=== PATIENT | female | born 1960 | race Caucasian/White ===

== ENCOUNTER 2016-07-25 09:48 | Emergency (ER) | payer OTHER, MEDICAID ==
--- NOTE | 2016-07-25 10:18 | EDPHY ---
H & P Time Seen by Provider: 07/25/16 10:18 HPI/ROS: CHIEF COMPLAINT: I need surgery HISTORY OF PRESENT ILLNESS: Patient is had abdominal pain for last year and had a CT scan yesterday at outpatient imaging and tells me she has a "tumor" in her abdomen and needs to schedule surgery. No vomiting or diarrhea, no fever or chills. REVIEW OF SYSTEMS: Eye: no change in vision ENT: no sore throat Cardiac: no chest pain or syncope Pulmonary: no cough or SOB Abdomen: HPI Musculoskeletal: Multiple areas of chronic pain from fibromyalgia unchanged Skin: no rash Neuro: no headache Constitutional: no fever : no urinary symptoms A comprehensive 10 point review of systems is otherwise negative aside from elements mentioned in the history of present illness. PAST MEDICAL HISTORY: Includes bipolar and fibromyalgia, sciatica, hysterectomy. Social history: Tobacco smoker General Appearance: Alert and conversant, cooperative. Eyes: No scleral icterus. ENT, Mouth: Normal mucous membranes. Respiratory: Normal respiratory effort, breath sounds equal, lungs are clear to auscultation. Cardiovascular: Regular rate and rhythm. Gastrointestinal: Abdomen is soft and non tender. Obese, no rebound or guarding. Neurological: Alert and oriented x3. Normally conversant. Face symmetric, normal movement and sensation in all extremities. Skin: Chronic venous stasis changes both legs unchanged. Musculoskeletal: Bilateral pedal edema unchanged Psychiatric: Not agitated. Emergency Department course/MDM: CT loaded into PACs, radiology consult. CT finding official read reviewed by me at 11:30 a.m.. This is by Dr. Nagi Rodrigues. She has sigmoid diverticulosis without diverticulitis and a supraumbilical left paramedian hernia containing fat 10 cm superior from the umbilicus which is 7.3 x 2.9 cm. Results discussed with the patient at this time. Does not have evidence clinically this is surgical emergency, outpatient surgical referral. Patient states she is understanding and in agreement with the plan. Smoking Status: Current every day smoker Constitutional: Initial Vital Signs Temperature (C) 36.7 C 07/25/16 09:53 Heart Rate 94 07/25/16 09:53 Respiratory Rate 18 07/25/16 09:53 Blood Pressure 108/51 L 07/25/16 09:53 O2 Sat (%) 94 07/25/16 09:53 O2 Delivery Mode Room Air Allergies/Adverse Reactions: aspirin [Aspirin] Allergy (Mild, Verified 01/29/13 11:21) Vomiting haloperidol [From Haldol] Allergy (Mild, Verified 01/29/13 11:21) INSOMNIA haloperidol lactate [From Haldol] Allergy (Mild, Verified 01/29/13 11:21) INSOMNIA oxycodone Allergy (Verified 05/04/15 19:36) OXYCODON Allergy (Uncoded 05/04/15 19:36) Home Medications: Medication Instructions Recorded [place] [facility] ER [Lithobid 300 600 mg PO BID 12/28/12 mg (RX)] [place] [facility] [[place] 2 tab PO BID #20 tab 12/28/12 Carbonate Tab 300 mg (RX)] AMITRIPTYLINE HCL 05/04/15 Lasix 07/25/16 Departure - Departure Disposition: Home, Routine, Self-Care Clinical Impression: Ventral hernia Qualifiers: Obstruction and gangrene presence: without obstruction or gangrene Qualified Code(s): K43.9 - Ventral hernia without obstruction or gangrene Condition: Good Instructions: Ventral Hernia (ED) Additional Instructions: You have on CT scan a small hernia above the belly button in the middle of your abdomen. Please follow-up with referral surgeon. Referrals: Wolfgang Broussard MD [Medical Doctor] - As per Instructions
[2016-07-25 11:52] VITALS: BP 124/76; PULSE 72; RESP 17; TEMP 98.2; O2SAT 96
== END 2016-07-25 11:51 | disposition home or self-care (01) ==
DX: K43.9 Ventral hernia without obstruction or gangrene (principal); F17.200 Nicotine dependence, unspecified, uncomplicated; Z90.710 Acquired absence of both cervix and uterus

== ENCOUNTER 2017-06-13 13:34 | Inpatient (IN) | payer OTHER, MEDICAID ==
[2017-06-13] MEDS ORDERED: NS 250 ML IV ONE (13:43)
[2017-06-13] MEDS ORDERED: IPRATROPIUM/ALBUTEROL 3 ML DEYVIAL IH ONE (13:48)
[2017-06-13] MEDS ORDERED: IPRATROPIUM/ALBUTEROL 3 ML DEYVIAL ONE (13:49)
--- NOTE | 2017-06-13 13:56 | EDPHY ---
H & P Time Seen by Provider: 06/13/17 13:43 HPI/ROS: HPI Cough, shortness of breath. 56-year-old female by ambulance. She was at her primary care physicians at the [facility]. She is homeless and has been staying at the homeless long-term. She reports that a lot of people have flu at the homeless long-term. She reports she developed a bad cough 2-3 days ago. She describes this as nonproductive. She reports that today with the cough she was more short of breath. She has also had fever and body aches. Denies chest pain. She has no history of COPD or asthma. Denies history of congestive heart failure. She is a smoker. She went to the [facility] to see care. Her pulse oximetry was 71% at that time. The physicians at the [facility] called 911 and she was sent emergently to our emergency department. ROS: Constitutional: As above. No weakness. Eyes: No discharge. No changes in vision. ENT: No sore throat. No nasal congestion or rhinorrhea. Respiratory: As above. Cardiac: No chest pain, no palpitations. Gastrointestinal: No abdominal pain, no vomiting, no diarrhea. Genitourinary: No hematuria. No dysuria or increased frequency with urination. Musculoskeletal: No back pain. No neck pain. As above. Skin: No rashes. Neurological: No headache. No focal weakness or altered sensation. Past medical history: Psychiatric. Bipolar, fibromyalgia, sciatica, hysterectomy, chronic back pain, hand fracture. Homeless. Social history: Heavy smoker. Denies IV drugs or street drugs. Denies alcohol. Homeless. Physical Exam: General Appearance: Alert, no distress. She is on face mask oxygen currently at 8 L. This patient is responding to questions appropriately and in short sentences. This patient appears generally well-hydrated and well-nourished. Eyes: Pupils equal and round no pallor or injection. No lid edema, erythema or injection. Respiratory: There are no retractions, diffuse wheezing bilateral lung olmedo with crackles at the bases. Tachypnea at 22-25. Cardiovascular: Regular rate and rhythm. No murmur. Gastrointestinal: Abdomen is soft and nontender, no masses, bowel sounds normal. No focal tenderness at McBurney's point. No Ferguson sign. Neurological: Motor sensory function is grossly intact. Cranial nerves are normal. Gait is normal. Skin: Warm and dry, no rashes. Musculoskeletal: Neck is supple and nontender. Extremities are symmetrical. All joints range without pain or impingement. Psychiatric: No agitation. No depression. Database: EKG: EKG time is 2:20 p.m.; EKG shows a narrow complex normal sinus rhythm with a ventricular rate of 95. Right bundle branch block and left posterior fascicular block noted. The NC, QT intervals are within normal limits. Q-waves noted in the inferior leads. There are no ST-T wave changes indicative of ischemic or injury pattern. No evidence of right heart strain. Interpreted by me. Imaging: Chest x-ray AP portable; the cardiac mediastinal silhouette is unremarkable. No evidence of infiltrate or pneumothorax. No acute cardiopulmonary disease process noted. Interpreted by me. Procedures: Emergency department course: IV was placed. Respiratory therapy available at the bedside with CPAP. Patient was placed on face mask oxygen at 8 L. She appears to be doing well on this currently. Pulse oximetry 95%. Patient started initially on albuterol/ Atrovent nebs 6 mL. 2:45 p.m., patient placed on CPAP initially at 8. This was done secondary to complaint of shortness of breath. She has been at 95% on her pulse oximetry with 8 L of facemask oxygen. 4:00 p.m., patient re-evaluated. She is currently on CPAP. No respiratory distress. Tolerating this therapy well. Pulse oximetry 97%. pearl stringer shows a narrow complex sinus rhythm rate of 88. Blood pressure 136/72. Patient given Tamiflu 75 mg orally. She is flu B positive. Plan for admission discussed. Hospitalist paged. Her troponin is also noted to be slightly elevated. 4:20 p.m., spoke with on-call hospitalist Dr. Vargas. Case discussed in detail with him. Discussed elevated troponin as well as patient's current condition on CPAP but stable. He accepts the patient for admission to the hospitalist service. He is requesting admission to [facility] with telemetry. The patient' s remaining emergency department course under my care has been uneventful. She was admitted in stable condition. Differential Diagnosis: The differential diagnosis on this patient includes but is not limited to bronchitis, pneumonia, congestive heart failure, influenza, reactive airway disease, COPD. This represents a partial list of diagnoses considered. These considerations are based on history, physical exam, past history, reassessment and diagnostic testing. Smoking Status: Current every day smoker Constitutional: Initial Vital Signs O2 Sat (%) 95 06/13/17 13:43 O2 Delivery Mode Bi-Pap O2 (L/minute) 5 Allergies/Adverse Reactions: aspirin [Aspirin] Allergy (Mild, Verified 01/29/13 11:21) Vomiting haloperidol [From Haldol] Allergy (Mild, Verified 01/29/13 11:21) INSOMNIA haloperidol lactate [From Haldol] Allergy (Mild, Verified 01/29/13 11:21) INSOMNIA oxycodone Allergy (Verified 05/04/15 19:36) Home Medications: Medication Instructions Recorded NK [No Known Home Meds] 06/13/17 Medical Decision Making - Data Points Laboratory Results: Laboratory Results 06/13/17 14:11 06/13/17 14:11 Microbiology Results: MICROBIOLOGY 06/13/17 13:50 Nasal, Sinus - Swab Respiratory Panel (PCR) - Final Influenza Virus Type B Medications Given: Acetaminophen (Tylenol) 650 mg PO Q4HRS PRN PRN Reason: Pain, Mild/Fever, Can Take PO Stop: 12/10/17 19:28 Last Admin: 06/13/17 23:46 Dose: 650 mg Albuterol/Ipratropium (Duoneb) 3 ml IH QID [facility] Stop: 12/10/17 20:59 Last Admin: 06/14/17 10:52 Dose: 3 ml Enoxaparin Sodium (Lovenox) 40 mg SC DAILY [facility] Stop: 12/11/17 08:59 Last Admin: 06/14/17 08:26 Dose: 40 mg Famotidine (Pepcid) 20 mg PO BID [facility] Stop: 12/10/17 20:59 Last Admin: 06/14/17 08:25 Dose: 20 mg Multivitamins (Tab-A-Jeanna) 1 each PO DAILY [facility] Stop: 12/11/17 08:59 Last Admin: 06/14/17 08:26 Dose: 1 each Nicotine (Nicoderm Cq) 21 mg TD DAILY [facility] Stop: 12/11/17 08:59 Last Admin: 06/14/17 08:44 Dose: Not Given Oseltamivir Phosphate (Tamiflu) 75 mg PO BIDMEAL [facility] Stop: 06/18/17 08:01 Last Admin: 06/14/17 08:25 Dose: 75 mg Prednisone (Prednisone) 40 mg PO BIDMEAL [place]YL[place] Stop: 12/10/17 19:32 Last Admin: 06/14/17 08:25 Dose: 40 mg Discontinued Medications Acetaminophen (Tylenol) 1,000 mg PO EDNOW ONE Stop: 06/13/17 15:40 Last Admin: 06/13/17 16:13 Dose: 1,000 mg Albuterol/Ipratropium (Duoneb) 6 ml IH EDNOW ONE Stop: 06/13/17 13:49 Last Admin: 06/13/17 14:30 Dose: 6 ml Sodium Chloride (Ns) 250 mls @ 1,000 mls/hr IV EDNOW ONE PRN Reason: Protocol Stop: 06/13/17 13:57 Last Admin: 06/13/17 14:30 Dose: 250 mls Oseltamivir Phosphate (Tamiflu) 75 mg PO EDNOW ONE Stop: 06/13/17 16:03 Last Admin: 06/13/17 16:14 Dose: 75 mg Departure - Departure Disposition: [facility] Clinical Impression: Bronchitis, Hypoxia, Influenza B, Elevated troponin Condition: Fair
--- NOTE | 2017-06-13 14:23 | CPEKG ---
Heart Rate: 95 RR Interval: 632 P-R Interval: 128 QRSD Interval: 124 QT Interval: 384 QTC Interval: 483 P [place]: 63 QRS [place]: 84 T Wave [place]: 19 EKG Severity - ABNORMAL ECG - EKG Impression: SINUS RHYTHM EKG Impression: RBBB AND LPFB EKG Impression: INFERIOR INFARCT, AGE INDETERMINATE Electronically Signed By: Garcia Hancock 13-Jun-2017 21:26:59
[2017-06-13 14:30] LABS: PLATELET COUNT 138 10^3/uL (150-400)
[2017-06-13] MEDS ORDERED: ACETAMINOPHEN 500 MG TAB PO ONE (15:39)
[2017-06-13] MEDS ORDERED: OSELTAMIVIR PHOSPHATE 75 MG CAP PO ONE (16:02)
--- NOTE | 2017-06-13 19:23 | PDGENHP ---
History and Physical History and Physical: CC: Cough shortness of breath fevers and aches HISTORY: This patient is homeless and staying in a local homeless correction comes in with 3-4 days of headaches, dry cough, nausea, diffuse myalgias and arthralgias, diarrhea, and now 2 days of rapidly progressive shortness of breath. She went to [facility] where she has 71% oxygen saturation and was quite dyspneic. She was sent to the ER. Here in the ER she has been using CPAP now to keep her oxygen saturation up and this is helping her symptom of dyspnea significantly. She has also had some bronchodilators. She has tested positive for influenza B. She does have a decades long history of smoking in past records has been diagnosed with COPD but is not using any bronchodilators or any other prescribed medicines at this time due to her homelessness. She does not have any chest pain and does not have any history of heart disease or thromboembolic disease. ROS: A comprehensive 10 system review revealed no other significant findings PAST MEDICAL HISTORY: COPD with ongoing smoking use Breast cancer with mastectomy Depression and possible bipolar disease Chronic reflux disease Hysterectomy Past history of alcohol and marijuana Osteoarthritis Fibromyalgia Chronic back pain FAMILY MEDICAL HISTORY: Unknown to patient SOCIAL HISTORY: Home less, still using tobacco but not drinking some pot use the Staying in homeless correction [facility] not on any regular basis MEDICATIONS: The patients list has been reconciled by our clinical pharmacist in the EMR. I have reviewed the list and ordered appropriate medicines. PHYSICAL EXAMINATION: Vital Signs: Temperature 38.4degrees, mildly hypertensive but good pulses calmer some increased respiratory rate Elastic Cutter: Sinus rhythm Examination: General: alert, oriented, good mentation Skin: warm, dry, good color, no rash HEENT: normal Neck: no mass or jvd Resps: Currently on CPAP, remains mildly tachypneic right now Lungs: Very diminished but clear breath sounds no wheeze or rales Heart: regular, no murmur Abdomen: soft, nondistended, nontender, +BS, no mass Upper Extremities: normal Lower Extremities: no edema, warm No Bleeding or bruising Neurologic: normal speech/language, normal art supervisor, no focal weakness IV site: looks normal LABORATORY DATA: White blood cell count is elevated CBC otherwise unremarkable indeterminate troponin 0.03 Potassium is elevated at 5.9 with normal renal function I have ordered a procalcitonin and this is currently pending RADIOLOGY STUDIES: I reviewed her chest x-ray today which shows evidence of COPD but no evidence of pneumonia or infiltrates and no pulmonary edema 12 LEAD EKG: I reviewed her ER tracing, borderline sinus tachycardia at 95, enlarged P waves , right bundle branch block and left anterior fascicular block, nothing ischemic ASSESSMENT: -acute hypoxemic respiratory failure with a history of COPD -acute influenza B infection -hyperkalemia, differential diagnosis here includes hemolysis of the sample -obesity and suspect she probably has some obesity hypoventilation syndrome as well as the above -homelessness High risk patient with ongoing urgent use of CPAP for her respiratory failure at this time PLANS: -admission to SDU -continue CPAP for now -bronchodilators and steroids for COPD -will begin Tamiflu -will check on the procalcitonin but at this time there is no direct evidence of a bacterial infection -pulmonology consultation in the morning I have reviewed the patient's case in detail with Dr. Hancock of the ER I have reviewed the patient's past medical records as part of this assessment, including previous hospital admission records and chest x-ray images
[2017-06-13] MEDS ORDERED: ONDANSETRON DISINTEGRATING 4 MG TAB PO PRN (19:29)
[2017-06-13] MEDS ORDERED: ZOLPIDEM TARTRATE 5 MG TAB PO PRN (19:29)
[2017-06-13] MEDS ORDERED: ONDANSETRON 4 MG/2 ML VIAL IVP PRN (19:29)
--- NOTE | 2017-06-13 19:35 | PDGENHP ---
History and Physical History and Physical: CC: Cough shortness of breath fevers and aches HISTORY: This patient is homeless and staying in a local homeless senior care comes in with 3-4 days of headaches, dry cough, nausea, diffuse myalgias and arthralgias, diarrhea, and now 2 days of rapidly progressive shortness of breath. She went to [facility] where she has 71% oxygen saturation and was quite dyspneic. She was sent to the ER. Here in the ER she has been using CPAP now to keep her oxygen saturation up and this is helping her symptom of dyspnea significantly. She has also had some bronchodilators. She has tested positive for influenza B. She does have a decades long history of smoking in past records has been diagnosed with COPD but is not using any bronchodilators or any other prescribed medicines at this time due to her homelessness. She does not have any chest pain and does not have any history of heart disease or thromboembolic disease. ROS: A comprehensive 10 system review revealed no other significant findings PAST MEDICAL HISTORY: COPD with ongoing smoking use Breast cancer with mastectomy Depression and possible bipolar disease Chronic reflux disease Hysterectomy Past history of alcohol and marijuana Osteoarthritis Fibromyalgia Chronic back pain FAMILY MEDICAL HISTORY: Unknown to patient SOCIAL HISTORY: Home less, still using tobacco but not drinking some pot use the Staying in homeless senior care [facility] not on any regular basis MEDICATIONS: The patients list has been reconciled by our clinical pharmacist in the EMR. I have reviewed the list and ordered appropriate medicines. PHYSICAL EXAMINATION: Vital Signs: Temperature 38.4degrees, mildly hypertensive but good pulses calmer some increased respiratory rate Crown Perforator Operator: Sinus rhythm Examination: General: alert, oriented, good mentation Skin: warm, dry, good color, no rash HEENT: normal Neck: no mass or jvd Resps: Currently on CPAP, remains mildly tachypneic right now Lungs: Very diminished but clear breath sounds no wheeze or rales Heart: regular, no murmur Abdomen: soft, nondistended, nontender, +BS, no mass Upper Extremities: normal Lower Extremities: no edema, warm No Bleeding or bruising Neurologic: normal speech/language, normal school bus operator, no focal weakness IV site: looks normal LABORATORY DATA: White blood cell count is elevated CBC otherwise unremarkable indeterminate troponin 0.03 Potassium is elevated at 5.9 with normal renal function I have ordered a procalcitonin and this is currently pending RADIOLOGY STUDIES: I reviewed her chest x-ray today which shows evidence of COPD but no evidence of pneumonia or infiltrates and no pulmonary edema 12 LEAD EKG: I reviewed her ER tracing, borderline sinus tachycardia at 95, enlarged P waves , right bundle branch block and left anterior fascicular block, nothing ischemic ASSESSMENT: -acute hypoxemic respiratory failure with a history of COPD -acute influenza B infection -hyperkalemia, differential diagnosis here includes hemolysis of the sample -obesity and suspect she probably has some obesity hypoventilation syndrome as well as the above -homelessness High risk patient with ongoing urgent use of CPAP for her respiratory failure at this time PLANS: -admission to SDU -continue CPAP for now -bronchodilators and steroids for COPD -will begin Tamiflu -will check on the procalcitonin but at this time there is no direct evidence of a bacterial infection -pulmonology consultation in the morning -will recheck potassium now and treat as indicated -DVT and stress ulcer prophylaxis both ordered I have reviewed the patient's case in detail with Dr. Hancock of the ER I have reviewed the patient's past medical records as part of this assessment, including previous hospital admission records and chest x-ray images
[2017-06-13 19:37] LABS: INR 1.14 (0.83-1.16); PROTIME(PATIENT) 14.8 SEC (12.0-15.0)
--- NOTE | 2017-06-13 19:57 | PDMN ---
Medical Necessity Medical necessity: C/M review: est. > 2 MN LOS for eval and TX of acute hypoxemic respiratory failure, acute influenza B infection, requiring ongoing Duonebs, oral Prednisone, oral Tamiflu, pulse oximetry, supplemental O2, CPAP in SDU, comorbid history of COPD, obesity, suspect probable obesity hypoventilation syndrome, homelessness, ongoing tobacco smoking use, breast cancer, possible bipolar disease, depression, chronic reflux disease, fibromyalgia, chronic back pain per H/P.
[2017-06-13] MEDS: predniSONE 20 MG TAB PO SCH (20:17)
[2017-06-13] MEDS: ACETAMINOPHEN 325 MG TAB PO PRN (23:46)
[2017-06-13] MEDS: FAMOTIDINE 20 MG TAB PO SCH (23:47)
[2017-06-13] MEDS: IPRATROPIUM/ALBUTEROL 3 ML DEYVIAL IH SCH (23:51)
[2017-06-14] MEDS: IPRATROPIUM/ALBUTEROL 3 ML DEYVIAL IH SCH ×4 (05:21→21:27)
[2017-06-14 06:19] LABS: PLATELET COUNT 150 10^3/uL (150-400)
[2017-06-14] MEDS: predniSONE 20 MG TAB PO SCH ×2 (08:25→17:20)
[2017-06-14] MEDS: FAMOTIDINE 20 MG TAB PO SCH ×2 (08:25→20:14)
[2017-06-14] MEDS: OSELTAMIVIR PHOSPHATE 75 MG CAP PO SCH ×2 (08:25→17:20)
[2017-06-14] MEDS: MULTIVITAMINS 1 EACH TAB PO SCH (08:26)
[2017-06-14] MEDS: ENOXAPARIN 40 MG/0.4 ML SYR SC SCH (08:26)
[2017-06-14] MEDS: NICOTINE 21 MG/24 HR PATCH TD SCH (08:44)
--- NOTE | 2017-06-14 14:58 | ASMTCMCOM ---
CM Note CM Note Notes: Pt has been admitted with the flu and hypoxia. On CPAP and 5L O2. Hx COPD. She is homeless and stays at the alf. Has been seen at [facility] but does not go regularly. CM will follow for any d /c needs. Date Signed: 06/14/2017 02:58 PM Electronically Signed By:JEN Viera
[2017-06-14] MEDS: AZITHROMYCIN IV 500 MG in D5W 250 ML IV SCH (16:12)
--- NOTE | 2017-06-14 17:32 | HOSPPROG ---
Hospitalist Progress Note Assessment/Plan: #. Acute Hypoxic Resp Failure - secondary to possibly COPD with influeza. Continue scheduled nebulizers and prednisone. Lungs still quite course on exam. I will add azithromycin in case of developing secondary bacterial pneumonia but procalcitonin relatively low at this time. #. COPD - suspected underlying COPD as chronic smoker. #. Influenza - Tamiflu started. Droplet precautions. #. Hyperkalemia - resolved. Now normal. #. Depression - history of but does not appear to be treated currently. #. Hx Breast CA - Hx mastectomy. #. Tobacco Use - nicotine replacement ordered. #. Bowel/Bladder - bowel regimen if constipation develops. #. DVT Prophylaxis - lovenox in place. #. Dispo - we will need social works assistance. She apparently lost her apartment. Subjective: Patient states she is still feeling quite short of breath. She confirms she does not use oxygen at home. She was tearful during exam as she states she lost her place of living. Objective: Vital Signs Temp Pulse Resp BP Pulse Ox 37.1 C 82 30 H 126/95 H 91 L 06/14/17 15:44 06/14/17 15:44 06/14/17 15:44 06/14/17 15:44 06/14/17 15:44 Laboratory Results 06/14/17 05:08 06/14/17 05:08 06/13/17 06/14/17 06/15/17 05:59 05:59 05:59 Intake Total 850 Output Total 700 Balance 850 -700 PT 14.8 SEC (12.0-15.0) 06/13/17 19:14 INR 1.14 (0.83-1.16) 06/13/17 19:14 - Physical Exam Constitutional: other (tearful, anxious) Cardiovascular: regular rate and rhythym, no murmur, rub, or gallop Respiratory: expiratory wheeze, inspiratory crackles Gastrointestinal: normoactive bowel sounds, soft, non-tender abdomen, No tenderness Genitourinary: No roberto in urethra Neurologic: AAOx3 Psychiatric: interacting appropriately, anxious ICD10 Worksheet Patient Problems: Problems Problem Status Onset Manic bipolar I disorder Active Bronchitis Acute Hypoxia Acute Influenza B Acute Elevated troponin Acute
[2017-06-14] MEDS: ACETAMINOPHEN 325 MG TAB PO PRN (20:14)
[2017-06-15] MEDS: IPRATROPIUM/ALBUTEROL 3 ML DEYVIAL IH SCH ×4 (05:21→20:00)
[2017-06-15 05:44] LABS: PLATELET COUNT 185 10^3/uL (150-400)
[2017-06-15] MEDS: OSELTAMIVIR PHOSPHATE 75 MG CAP PO SCH ×2 (08:07→17:37)
[2017-06-15] MEDS: predniSONE 20 MG TAB PO SCH (08:07)
[2017-06-15] MEDS: FAMOTIDINE 20 MG TAB PO SCH ×2 (08:07→20:48)
[2017-06-15] MEDS: ENOXAPARIN 40 MG/0.4 ML SYR SC SCH (08:07)
[2017-06-15] MEDS: AZITHROMYCIN IV 500 MG in D5W 250 ML IV SCH (08:07)
[2017-06-15] MEDS: MULTIVITAMINS 1 EACH TAB PO SCH (08:07)
[2017-06-15] MEDS: NICOTINE 21 MG/24 HR PATCH TD SCH (08:09)
[2017-06-15] MEDS ORDERED: AZITHROMYCIN IV 500 MG in D5W 250 ML IV SCH (09:00)
[2017-06-15] MEDS: ACETAMINOPHEN 325 MG TAB PO PRN ×2 (15:44→20:47)
--- NOTE | 2017-06-15 16:09 | HOSPPROG ---
Hospitalist Progress Note Assessment/Plan: #. Acute Hypoxic Resp Failure - secondary to possibly COPD with influeza. Continue scheduled nebulizers and prednisone. Lungs still quite course on exam. I will add azithromycin in case of developing secondary bacterial pneumonia but procalcitonin relatively low at this time. #. COPD - suspected underlying COPD as chronic smoker. #. Influenza - Tamiflu started. Droplet precautions. #. Depression - history of but does not appear to be treated currently. #. Hx Breast CA - Hx mastectomy. #. Tobacco Use - nicotine replacement ordered. #. Insomnia - exacerbated by prednisone. Try amitriptyline at night which she has used in the past. #. Bowel/Bladder - bowel regimen if constipation develops. #. DVT Prophylaxis - lovenox in place. #. Dispo - we will need social works assistance. She apparently lost her apartment. Subjective: F/U acute hypoxia. She states difficulty sleeping last night due to prednisone. We discussed amitriptyline which she has used previously. She feels her breathing is improving. Objective: Vital Signs Temp Pulse Resp BP Pulse Ox 37.3 C 87 23 H 136/100 H 94 06/15/17 15:40 06/15/17 15:40 06/15/17 15:40 06/15/17 15:40 06/15/17 15:40 Laboratory Results 06/15/17 05:27 06/15/17 05:27 06/14/17 06/15/17 06/16/17 05:59 05:59 05:59 Intake Total 850 1500 800 Output Total 700 Balance 850 800 800 PT 14.8 SEC (12.0-15.0) 06/13/17 19:14 INR 1.14 (0.83-1.16) 06/13/17 19:14 - Physical Exam Constitutional: no apparent distress Cardiovascular: regular rate and rhythym, no murmur, rub, or gallop Respiratory: no respiratory distress, expiratory wheeze Gastrointestinal: normoactive bowel sounds, soft, non-tender abdomen Genitourinary: No roberto in urethra Skin: warm, normal color Psychiatric: not anxious ICD10 Worksheet Patient Problems: Problems Problem Status Onset Bronchitis Acute Elevated troponin Acute Hypoxia Acute Influenza B Acute Manic bipolar I disorder Active
[2017-06-15] MEDS: AMITRIPTYLINE HCL 10 MG TAB PO PRN (20:48)
[2017-06-16] MEDS: ACETAMINOPHEN 325 MG TAB PO PRN ×4 (05:13→21:37)
[2017-06-16] MEDS: IPRATROPIUM/ALBUTEROL 3 ML DEYVIAL IH SCH ×4 (05:34→21:36)
[2017-06-16 05:59] LABS: PLATELET COUNT 228 10^3/uL (150-400)
[2017-06-16] MEDS: ENOXAPARIN 40 MG/0.4 ML SYR SC SCH (08:21)
[2017-06-16] MEDS: MULTIVITAMINS 1 EACH TAB PO SCH (08:21)
[2017-06-16] MEDS: OSELTAMIVIR PHOSPHATE 75 MG CAP PO SCH ×2 (08:21→16:33)
[2017-06-16] MEDS: predniSONE 20 MG TAB PO SCH (08:21)
[2017-06-16] MEDS: AZITHROMYCIN IV 500 MG in D5W 250 ML IV SCH (08:21)
[2017-06-16] MEDS: FAMOTIDINE 20 MG TAB PO SCH ×2 (08:21→21:37)
[2017-06-16] MEDS: NICOTINE 21 MG/24 HR PATCH TD SCH (08:46)
--- NOTE | 2017-06-16 20:26 | HOSPPROG ---
Hospitalist Progress Note Assessment/Plan: #. Acute Hypoxic Resp Failure - secondary to possible COPD with influeza. Continue scheduled nebulizers and prednisone at 40mg once daily. Lung exam improved. #. COPD - suspected underlying COPD as chronic smoker. #. Influenza - Tamiflu started. Droplet precautions. #. Depression - history of but does not appear to be treated currently. #. Hx Breast CA - Hx mastectomy. #. Tobacco Use - nicotine replacement ordered. #. Insomnia - exacerbated by prednisone. Amitriptyline helpful last night and used in the past. #. Bowel/Bladder - bowel regimen if constipation develops. #. DVT Prophylaxis - lovenox. #. Dispo - we will need social works assistance. She apparently lost her apartment. Likely looking at [facility] to [facility] in discussions with case management. Ideally wean completely off oxygen prior to discharge. Subjective: F/U hypoxia and respiratory failure. I was able to wean to 3L on my exam. No new events overnight. Objective: Vital Signs Temp Pulse Resp BP Pulse Ox 36.8 C 83 20 147/115 H 93 06/16/17 16:31 06/16/17 16:31 06/16/17 16:31 06/16/17 16:31 06/16/17 16:31 Laboratory Results 06/16/17 05:43 06/15/17 05:27 06/15/17 06/16/17 06/17/17 05:59 05:59 05:59 Intake Total 1500 2150 1200 Output Total 700 1 200 Balance 800 2149 1000 PT 14.8 SEC (12.0-15.0) 06/13/17 19:14 INR 1.14 (0.83-1.16) 06/13/17 19:14 - Physical Exam Constitutional: no apparent distress Cardiovascular: regular rate and rhythym, no murmur, rub, or gallop, No edema Respiratory: no respiratory distress, expiratory wheeze (lessened wheezing.) Gastrointestinal: normoactive bowel sounds, soft, non-tender abdomen Genitourinary: No roberto in urethra ICD10 Worksheet Patient Problems: Problems Problem Status Onset Bronchitis Acute Elevated troponin Acute Hypoxia Acute Influenza B Acute Manic bipolar I disorder Active
[2017-06-16] MEDS: AMITRIPTYLINE HCL 10 MG TAB PO PRN (21:37)
[2017-06-17 04:46] LABS: PLATELET COUNT 204 10^3/uL (150-400)
[2017-06-17] MEDS: ACETAMINOPHEN 325 MG TAB PO PRN ×2 (04:53→20:41)
[2017-06-17] MEDS: IPRATROPIUM/ALBUTEROL 3 ML DEYVIAL IH SCH ×4 (05:50→21:20)
[2017-06-17] MEDS: FAMOTIDINE 20 MG TAB PO SCH ×2 (08:08→20:39)
[2017-06-17] MEDS: predniSONE 20 MG TAB PO SCH (08:08)
[2017-06-17] MEDS: MULTIVITAMINS 1 EACH TAB PO SCH (08:09)
[2017-06-17] MEDS: ENOXAPARIN 40 MG/0.4 ML SYR SC SCH (08:10)
[2017-06-17] MEDS: OSELTAMIVIR PHOSPHATE 75 MG CAP PO SCH ×2 (08:12→18:07)
[2017-06-17] MEDS: NICOTINE 21 MG/24 HR PATCH TD SCH (09:51)
--- NOTE | 2017-06-17 12:14 | HOSPPROG ---
Hospitalist Progress Note Assessment/Plan: The patient presented the emergency room with headaches, dry cough nausea and diffuse myalgias and arthralgias. Patient was sent to the emergency room and noted to have influenza. Today is my 1st encounter with the patient. Chart reviewed. #. Acute Hypoxic Resp Failure Multifactorial- secondary to possible COPD with influeza. scheduled nebulizers and prednisone at 40mg once daily. On 3 L today #. COPD - suspected underlying COPD as chronic smoker. #. Influenza - Tamiflu started. Droplet precautions. #. Depression - history of but does not appear to be treated currently. #. Hx Breast CA - Hx mastectomy. #. Tobacco Use - nicotine replacement ordered. #. Insomnia - exacerbated by prednisone. Amitriptyline helpful. #. Bowel/Bladder - bowel regimen if constipation develops. #. DVT Prophylaxis - lovenox. #. Dispo - we will need social works assistance. She apparently lost her apartment. Likely looking at discharge to homeless detention in discussions with case management. Ideally wean completely off oxygen prior to discharge. Patient has a daughter in the area. The patient has requested the case management contact her daughter in case this is a possibility for placement Subjective: gerardo said she is feeling slowly better. Objective: Vital Signs Temp Pulse Resp BP Pulse Ox 36.7 C 74 32 H 150/77 H 92 06/17/17 11:15 06/17/17 11:48 06/17/17 11:48 06/17/17 11:15 06/17/17 11:48 Laboratory Results 06/17/17 04:32 06/17/17 04:32 06/16/17 06/17/17 06/18/17 05:59 05:59 05:59 Intake Total 2150 1450 Output Total 1 200 Balance 2149 1250 PT 14.8 SEC (12.0-15.0) 06/13/17 19:14 INR 1.14 (0.83-1.16) 06/13/17 19:14 - Physical Exam Constitutional: obese Eyes: PERRL Ears, Nose, Mouth, Throat: hearing normal Cardiovascular: regular rate and rhythym Respiratory: no respiratory distress, reduced air movement Gastrointestinal: normoactive bowel sounds Skin: warm Musculoskeletal: generalized weakness Neurologic: AAOx3 Psychiatric: interacting appropriately ICD10 Worksheet Patient Problems: Problems Problem Status Onset Bronchitis Acute Elevated troponin Acute Hypoxia Acute Influenza B Acute Manic bipolar I disorder Active
--- NOTE | 2017-06-17 17:01 | ASMTCMCOM ---
CM Note CM Note Notes: Requested PT/OT evals from RN. Pt on 3L O2. OT recommending SN, PT still pending. Date Signed: 06/17/2017 05:01 PM Electronically Signed By:JEN Viera
[2017-06-17] MEDS: AMITRIPTYLINE HCL 10 MG TAB PO PRN (20:39)
[2017-06-18] MEDS: IPRATROPIUM/ALBUTEROL 3 ML DEYVIAL IH SCH ×4 (05:07→21:22)
[2017-06-18 05:39] LABS: PLATELET COUNT 286 10^3/uL (150-400)
[2017-06-18] MEDS: ALBUTEROL 3 ML DEYVIAL IH PRN (07:22)
[2017-06-18] MEDS: ENOXAPARIN 40 MG/0.4 ML SYR SC SCH (07:43)
[2017-06-18] MEDS: predniSONE 20 MG TAB PO SCH (07:44)
[2017-06-18] MEDS: FAMOTIDINE 20 MG TAB PO SCH ×2 (07:45→21:58)
[2017-06-18] MEDS: OSELTAMIVIR PHOSPHATE 75 MG CAP PO SCH (07:45)
[2017-06-18] MEDS: MULTIVITAMINS 1 EACH TAB PO SCH (07:46)
[2017-06-18] MEDS ORDERED: FUROSEMIDE 40 MG/4 ML VIAL IVP ONE (08:53)
[2017-06-18] MEDS ORDERED: POTASSIUM CL 10 MEQ TAB PO ONE (08:53)
--- NOTE | 2017-06-18 09:16 | HOSPPROG ---
Hospitalist Progress Note Assessment/Plan: The patient presented the emergency room with headaches, dry cough nausea and diffuse myalgias and arthralgias. Patient was sent to the emergency room and noted to have influenza. #. Acute Hypoxic Resp Failure Multifactorial- secondary to possible COPD with influenza. scheduled nebulizers and prednisone at 40mg once daily. 10 liters chest xray shows she is fluid overloaded lasix x one now will get an echocardiogram now to further evaluate #. COPD - suspected underlying COPD as chronic smoker. #. Influenza - Tamiflu started. Droplet precautions. #. Depression - history of but does not appear to be treated currently. #. Hx Breast CA - Hx mastectomy. #. Tobacco Use - nicotine replacement ordered. #. Insomnia - exacerbated by prednisone. Amitriptyline helpful. #. Bowel/Bladder - bowel regimen if constipation develops. #. DVT Prophylaxis - lovenox. #. Dispo -pending. She is requiring high O2 needs, will follow closely, will check BNP and chemistry in a.m. Subjective: Carole is feeling fine overall, some shortness of breath. Objective: Vital Signs Temp Pulse Resp BP Pulse Ox 37.2 C 79 18 142/65 H 91 L 06/18/17 08:00 06/18/17 08:00 06/18/17 08:00 06/18/17 08:00 06/18/17 08:00 Laboratory Results 06/18/17 04:28 06/18/17 04:28 06/17/17 06/18/17 06/19/17 05:59 05:59 05:59 Intake Total 1450 Output Total 200 Balance 1250 PT 14.8 SEC (12.0-15.0) 06/13/17 19:14 INR 1.14 (0.83-1.16) 06/13/17 19:14 - Physical Exam Constitutional: obese Eyes: PERRL Ears, Nose, Mouth, Throat: hearing normal Cardiovascular: regular rate and rhythym Respiratory: reduced air movement Gastrointestinal: normoactive bowel sounds Skin: warm Musculoskeletal: full muscle strength Neurologic: AAOx3 Psychiatric: interacting appropriately ICD10 Worksheet Patient Problems: Problems Problem Status Onset Bronchitis Acute Elevated troponin Acute Hypoxia Acute Influenza B Acute Manic bipolar I disorder Active
[2017-06-18] MEDS: NICOTINE 21 MG/24 HR PATCH TD SCH (10:52)
--- NOTE | 2017-06-18 15:45 | ECHO ---
[email or web address] [address] [address] Main: [phone] Fax: Transthoracic Echocardiogram Name: STEVE SWENSON MR#: [id number] Study Date: 06/18/2017 Study Time: 10:00 AM Date of : 1960 Age: 56 year(s) Height: 165.1 cm (65 in.) Weight: 107.96 kg (238 lb.) BSA: 2.13 m2 Gender: Female Examination: Echo Indication: Hypoxia, Flu, Positive Troponins Image Quality: Contrast: Requested by: Dawna Pascual BP: 125 mmHg/65 mmHg Heart Rate: Rhythm: Normal sinus rhythm Indication: Hypoxia, Flu, Positive Troponins Procedure Staff Copyright Expert: Aleksandar Guzman Reading Physician: Live Garcia Requesting Provider: Conclusions: Normal size left ventricle. There is basilar to mid inferolateral hypokinesis. There is inferior to inferoseptal hypokinesis. The EF is estimated at 40-45%. The left atrium is moderately to severely dilated. The right atrium is mildly dilated. Mild mitral valve regurgitation is present. Trivial tricuspid valve regurgitation. No pericardial effusion. Measurements: Chambers Valvular Assessment AV/MV Valvular Assessment TV/PV Normal Normal Normal Name Value Range Name Value Range Name Value Range Ao Jeannie (MM): 2.7 cm (2.2 cm-3.7 AV Vmax: 1.75 m/s (1 m/s-1.7 PV Vmax: 1.22 m/s (0.6 m/s-0.9 cm) m/s) m/s) IVSd (2D): 1.1 cm (0.6 cm-1.1 AV maxP mmHg ( - ) PV PGmax: 6 mmHg ( - ) cm) LVOT Vmax: 1.19 m/s (0.7 m/s-1.1 LVDd (2D): 5.1 cm (3.9 cm-5.3 m/s) cm) MV E Vmax: 0.61 m/s ( - ) LVDs (2D): 4.2 cm (2.1 cm-4 MV A Vmax: 0.85 m/s ( - ) cm) MV E/A: 0.72 ( - ) LVPWd (2D): 1.1 cm ( - ) LVEF (BP): 44 % (>=55 %) Continued Measurements: Chambers Valvular Assessment AV/MV Name Value Name Value LADs Lon.0 cm MV E/E' Septal: 17.40 Patient: STEVE SWENSON Study Date: 06/18/2017 Page 1 of 2 10:00 AM LA Area: 21.0 cm2 LA Volume: 49 ml LA Volume Index: 23.0 ml/m2 Findings: Left Ventricle: Normal size left ventricle. There is basilar to mid inferolateral hypokinesis. There is inferior to inferoseptal hypokinesis. The EF is estimated at 40-45%. Left Atrium: The left atrium is moderately to severely dilated. Right Atrium: The right atrium is mildly dilated. Mitral Valve: The mitral valve is normal in appearance. Mild mitral valve regurgitation is present. Aortic Valve: The aortic valve is tri-leaflet. The aortic valve is normal in appearance. Tricuspid Valve: The tricuspid valve appears normal. Trivial tricuspid valve regurgitation. Pulmonic Valve: The pulmonic valve is normal in appearance and function. Aorta: The aorta is normal. Pericardium: No pericardial effusion. (No Signature Object) Patient: STEVE SWENSON Study Date: 06/18/2017 Page 2 of 2 10:00 AM [id number]
--- NOTE | 2017-06-18 16:19 | ASMTCMCOM ---
CM Note CM Note Notes: PT rec SNF, pt agreeable ideally wants SNF in [place]. Referrals sent to [place] and [facility] in [facility]. Non-triggering PASRR completed. Date Signed: 06/18/2017 04:18 PM Electronically Signed By:JEN Lin
--- NOTE | 2017-06-19 00:10 | CPEKG ---
Heart Rate: 69 RR Interval: 870 P-R Interval: 152 QRSD Interval: 120 QT Interval: 424 QTC Interval: 455 P Addison: 67 QRS Addison: 76 T Wave Addison: 1 EKG Severity - ABNORMAL ECG - EKG Impression: SINUS RHYTHM EKG Impression: IVCD, CONSIDER ATYPICAL RBBB EKG Impression: INFERIOR INFARCT, AGE INDETERMINATE EKG Impression: COMPARED WITH 06/13/2017 AT 2:20 P.M. NO SIGNIFICANT CHANGE Electronically Signed By: Meron Blakely 19-Jun-2017 13:19:28
[2017-06-19] MEDS: IPRATROPIUM/ALBUTEROL 3 ML DEYVIAL IH SCH ×4 (05:23→21:12)
[2017-06-19] MEDS ORDERED: CANN-EASE 2 GM TUBE TP ONE (07:14)
[2017-06-19] MEDS ORDERED: FUROSEMIDE 40 MG/4 ML VIAL IVP ONE (09:53)
[2017-06-19] MEDS ORDERED: REGADENOSON 0.4 MG/5 ML SYR IVP ONE (10:25)
[2017-06-19] MEDS ORDERED: LORazepam 2 MG/ML INJ IVP ONE (11:14)
[2017-06-19] MEDS ORDERED: PNEUMOCOCCAL 0.5ML VACCINE VIAL IM ONE (12:03)
[2017-06-19] MEDS ORDERED: FLU VACC QS 2017-18 (3YR+)/PF 0.5 ML SYR (FLUARIX QUAD) IM ONE (12:03)
[2017-06-19] MEDS: LOSARTAN POTASSIUM 25 MG TAB PO SCH (12:05)
[2017-06-19] MEDS: CLOPIDOGREL BISULFATE 75 MG TAB PO SCH (12:06)
[2017-06-19] MEDS: ATORVASTATIN CALCIUM 20 MG TAB PO SCH (12:06)
[2017-06-19] MEDS: FAMOTIDINE 20 MG TAB PO SCH ×2 (12:06→20:22)
[2017-06-19] MEDS: MULTIVITAMINS 1 EACH TAB PO SCH (12:07)
[2017-06-19] MEDS: predniSONE 20 MG TAB PO SCH (12:08)
[2017-06-19] MEDS: ENOXAPARIN 40 MG/0.4 ML SYR SC SCH (12:08)
[2017-06-19] MEDS: NICOTINE 21 MG/24 HR PATCH TD SCH (12:09)
[2017-06-19] MEDS ORDERED: FUROSEMIDE 40 MG/4 ML VIAL ONE (12:40)
--- NOTE | 2017-06-19 13:22 | GCON ---
[f rep st] CONSULTATION CARDIOLOGY CONSULT DATE OF CONSULTATION: 06/19/2017 CHIEF COMPLAINT: Shortness of breath. HISTORY OF PRESENT ILLNESS: We were asked by Dawna Pascual NP to visit with the patient. The pat jeremias is a 56-year-old female with no known cardiovascular disease. She does have a history of heavy tobacco use, obesity. She was admitted on June 13 from [facility] with dyspnea and hypoxia to 71% on room air. She was diagnosed with influenza B and likely has COPD. She has been significa ntly hypoxic requiring oxygen throughout her hospital stay. Because of her ongoing symptoms, an echocardiogram was ordered on June 18. This shows a mildly reduced ejection fraction of 40% to 45% with inferior, inferoseptal, and inferolateral hypokinesis. The right ventricle is normal in size and systolic function. Moderate to severe left atrial dilation and mild right atrial dilation. Unable to estimate pulmonary pressure. Mild mitral regurgitation. Because of these findings, as well as her EKG which does show inferior Q waves, we were asked to con sult. Upon my evaluation, the patient states that she remains short of breath and does not feel that she ferguson s gotten that much better, but just a little bit better, since admission. She is coughing quite a bi t. She denies any ongoing angina or previous history of angina. She has not had problems with synco pe, palpitations, or significant lower extremity edema. She states that she does walk when she is fe eling well and has never had chest pain with exertion. ALLERGIES: Aspirin, haloperidol, oxycodone. PAST MEDICAL HISTORY: 1. Likely COPD. 2. Tobacco abuse. 3. Obesity. 4. History of breast cancer, status post mastectomy. 5. GERD. 6. Osteoarthritis. 7. Fibromyalgia. 8. Depression. 9. Possible bipolar disease. 10. Status post hysterectomy. OUTPATIENT MEDICATIONS: None. SOCIAL HISTORY: The patient is homeless. She smokes cigarettes heavily. She has a past history of heavy alcohol use. FAMILY HISTORY: Not applicable to the current case. PHYSICAL EXAM: VITAL SIGNS: Blood pressure is 124/72, heart rate 77, oxygen saturation 98% on 6 L s upplemental oxygen. She is afebrile. GENERAL: Chronically ill-appearing middle-aged female. Mildl y dyspneic. Coughing throughout the interview. HEENT: Sclerae clear and free of jaundice. Mucous membranes are moist. CARDIOVASCULAR: JVP is less than 10. Carotids equal and 2+ without bruit. Re gular rate and rhythm without obvious murmur, rub, or gallop. LUNGS: She has diffuse inspiratory an d expiratory wheezes throughout all lung olmedo. ABDOMEN: Soft, nontender, nondistended without bru its, masses, or hepatosplenomegaly. EXTREMITIES: Warm and perfused without cyanosis, clubbing, or e long. NEURO: Alert and oriented x3 without gross focal neurologic deficits. LABORATORY DATA: White count 12.96, hematocrit 40, platelets 287. INR 1.14. Sodium 143, potassium 4.4, chloride 105. BUN 17, creatinine 0.6, glucose 102. Troponin upon admission on June 13 was 0.036. This morning, 0.018, which is normal. BNP upon admission was 612, now 1640. Influenza B positive. EKG from admission as well as from June 18, reviewed by me: Both show sinus rhythm. Right bund le branch block. Inferior Q waves. Echocardiogram personally reviewed by me and detailed above. Chest x-ray x2, reviewed by me: Pulmonary edema. Bilateral lower lobe opacities concerning for poss ible pneumonia. ASSESSMENT AND PLAN: A 56-year-old female with cardiac risk factors of tobacco abuse and obesity, ad mitted with acute hypoxic respiratory failure related to influenza, possible pneumonia, and underlyin g chronic obstructive pulmonary disease. She has had an electrocardiogram and echocardiogram consist ent with previous inferior myocardial infarction. Ejection fraction is mildly reduced at 40% to 45%. 1. 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 I think that this is not a new problem this admission. It seems t hat her dyspnea is almost all related to her chronic underlying lung disease with superimposed infect ious process. I would add Plavix (aspirin allergy) and atorvastatin to her regimen. I have ordered a hemoglobin A1c and lipid profile for further risk stratification. At this point, there is no need for urgent cardiac catheterization. When she is improved from a pulmonary standpoint, she would be a candidate for Lexiscan myocardial perfusion imaging. I would not recommend giving her Lexiscan now as she is actively wheezing and significantly hypoxic, and the Lexiscan can make her respiratory stat us worse. Her BNP is slightly elevated. We will give a single dose of intravenous Lasix to see if t his improves her dyspnea and oxygen requirements. Will also add losartan for her cardiomyopathy, but hold on beta blockers given her active wheezing. 2. Chronic obstructive pulmonary disease with influenza and possible pneumonia: Per Hospital Medic[facility] ne. I strongly encouraged her to quit smoking completely. 3. Obesity: She would benefit from weight loss. 4. Smoking: She was strongly encouraged to quit. Thank you for allowing us to participate in the patient's care. We will follow with you. /[id number]/MODL
--- NOTE | 2017-06-19 14:52 | HOSPPROG ---
Hospitalist Progress Note Assessment/Plan: spoke with cardiology; they will see her tomorrow/ NPO after midnight/ came back to update Carole on plan of care. Reviewed echo which shows ef of 40-45% . Original Note: Hospitalist Progress Note Assessment/Plan: The patient presented the emergency room with headaches, dry cough nausea and diffuse myalgias and arthralgias. Patient was sent to the emergency room and noted to have influenza. First encounter, chart reviewed. D/W Cristina. #. Acute Hypoxic Resp Failure Multifactorial- secondary to possible COPD with influenza. scheduled nebulizers and prednisone at 40mg once daily. down to 6 Liters chest xray shows she is fluid overloaded lasix x one given, defer to cards for further diuretics ECHO and cards consult done. stress test #. COPD - suspected underlying COPD as chronic smoker. #. Influenza - Tamiflu started. Droplet precautions. #. Depression - history of but does not appear to be treated currently. #. Hx Breast CA - Hx mastectomy. #. Tobacco Use - nicotine replacement ordered. #. Insomnia - exacerbated by prednisone. Amitriptyline helpful. #. Bowel/Bladder - bowel regimen if constipation develops. #. DVT Prophylaxis - lovenox. #. Dispo -pending. She is requiring high O2 needs, will follow closely plan for SNF when O2 decreased and ok with cards Subjective: Feeling ok. Back pain. No other issues. Objective: Vital Signs Temp Pulse Resp BP Pulse Ox 37.0 C 77 20 124/72 H 88 L 06/19/17 08:00 06/19/17 09:57 06/19/17 09:57 06/19/17 08:00 06/19/17 09:57 Laboratory Results 06/18/17 04:28 06/19/17 04:40 06/18/17 06/19/17 06/20/17 05:59 05:59 05:59 Intake Total 420 Output Total 1 Balance 419 PT 14.8 SEC (12.0-15.0) 06/13/17 19:14 INR 1.14 (0.83-1.16) 06/13/17 19:14 - Physical Exam Constitutional: chronically ill appearing, obese, uncomfortable Eyes: PERRL, anicteric sclera, EOMI Ears, Nose, Mouth, Throat: moist mucous membranes, hearing normal, ears appear normal Cardiovascular: regular rate and rhythym, edema, No JVD Respiratory: no respiratory distress, expiratory wheeze, No rhonchi Gastrointestinal: No tenderness, No ascites, No guarding Skin: warm, normal color, No mottled Musculoskeletal: no joint effusions, pain with ROM, generalized weakness Neurologic: AAOx3 Psychiatric: not anxious, not encephalopathic, poor insight, poor judgement ICD10 Worksheet Patient Problems: Problems Problem Status Onset Manic bipolar I disorder Active Bronchitis Acute Hypoxia Acute Influenza B Acute Elevated troponin Acute
--- NOTE | 2017-06-19 16:11 | ASMTCMCOM ---
CM Note CM Note Notes: Pt PASRR triggers, sent to [facility] today. [facility] referral pending, this is pt first choice she states because she wants to smoke. CM to follow. Date Signed: 06/19/2017 04:10 PM Electronically Signed By:JEN Lin
[2017-06-19] MEDS: ACETAMINOPHEN 325 MG TAB PO PRN (20:25)
--- NOTE | 2017-06-19 20:31 | CPR ---
[f rep st] NONINVASIVE CARDIAC PROCEDURE REPORT DATE OF PROCEDURE: 06/19/2017 REPORT TITLE: LEXISCAN NUCLEAR STRESS TEST REASON FOR TEST: Abnormal echocardiogram showing old inferolateral changes. FINDINGS: Resting EKG shows a sinus rhythm with a rate of 74, incomplete right bundle branch block, inferior infarct, age indeterminate. Resting Blood Pressure 130/72, heart rate 74, anxious and easily agitated, Respiration rate 14, no wheezing, on oxygen per mask at 7L. Oxygen Saturation 95 %. Attempt to decrease oxygen liter, results in oxygen saturation less than 90 %. No chest pain. STRESS PORTION: Lexiscan was injected rapidly, followed by saline flush. Cardiolite was then injected, followed by saline flush. She had no flushing, chest pain, or increased shortness of breath. EKG remained stable throughout the stress portion. Heart Rate increased to maximum of 98. Blood pressure 122/ 72, oxygen at 7L. Oxygen Saturation 96%. No arrhythmias were noted. RECOVERY: She did spontaneously recover. There were no EKG changes. Her heart rate remained elevated at 93 after 5 minutes. She was anxious and complaining of back pain due to lying on the table and became more agitated. She did calm down, and Hospitalist was notified to order anxiety and pain medication prior to resuming the stress scans. At this time, she is calmer. Her heart rate remains at 90. Blood Pressure 118/74, Oxygen saturation 96%. She is in no distress at conclusion of test. /[id number]/MODL and [id number]/MODL [facility]
[2017-06-20] MEDS: ALBUTEROL 3 ML DEYVIAL IH PRN ×2 (01:59→08:45)
[2017-06-20] MEDS: IPRATROPIUM/ALBUTEROL 3 ML DEYVIAL IH SCH ×4 (05:55→21:24)
--- NOTE | 2017-06-20 09:22 | ASMTCMCOM ---
CM Note CM Note Notes: PASRR received from [facility] coordinator and [facility] accepts pt. D/c plan is [facility] when medically stable. Date Signed: 06/20/2017 09:22 AM Electronically Signed By:JEN Lin
[2017-06-20] MEDS: ENOXAPARIN 40 MG/0.4 ML SYR SC SCH (09:36)
[2017-06-20] MEDS: predniSONE 20 MG TAB PO SCH (09:37)
[2017-06-20] MEDS: ATORVASTATIN CALCIUM 20 MG TAB PO SCH (09:37)
[2017-06-20] MEDS: MULTIVITAMINS 1 EACH TAB PO SCH (09:37)
[2017-06-20] MEDS: CLOPIDOGREL BISULFATE 75 MG TAB PO SCH (09:37)
[2017-06-20] MEDS: FAMOTIDINE 20 MG TAB PO SCH ×2 (09:37→21:04)
[2017-06-20] MEDS: LOSARTAN POTASSIUM 25 MG TAB PO SCH (09:37)
[2017-06-20] MEDS: NICOTINE 21 MG/24 HR PATCH TD SCH (09:46)
[2017-06-20] MEDS ORDERED: FUROSEMIDE 20 MG/2 ML VIAL IVP ONE (11:25)
[2017-06-20] MEDS: AZITHROMYCIN 250 MG TAB PO SCH (12:28)
[2017-06-20] MEDS: guaiFENesin 600 MG TAB.ER PO SCH ×2 (12:28→21:03)
--- NOTE | 2017-06-20 12:36 | PDCARPN ---
Cardiology Progress Note Assessment/Plan: Assessment/plan: 56-year-old female with ongoing tobacco abuse, COPD, obesity, newly diagnosed diabetes. She was admitted on June 13 with influenza and hypoxia. During the course of her hospitalization she was found to have a cardiomyopathy with ejection fraction of 40-45% and inferior/inferolateral wall motion abnormality. She went on to have pharmacological nuclear stress testing notable for inferior and inferolateral infarct but no active territories of ischemia. 1. Cardiomyopathy that appears to be ischemic: She is not having angina. Troponin initially was minimally elevated, now normal. I do not think that her inferolateral VT is recent. Plavix was added as she has an aspirin allergy. We also added losartan and Lipitor. Hold off on beta-blockers given her active wheezing. She will be candidate for beta-helder therapy in the future. 2. Coronary disease on the basis of EKG, echo, and nuclear stress test. She needs aggressive risk factor modification including treatment of her diabetes and smoking cessation. Plavix, statin, losartan as detailed above. 3. COPD and hypoxia: Underlying lung disease exacerbated by influenza and possible pneumonia. Per Internal Medicine 4. Tobacco abuse. She was strongly encouraged to quit smoking. 5. Elevated hemoglobin A1c: Defer to Internal Medicine, but would highly recommend treatment given her coronary disease. We will sign off, I have asked the patient to follow up with me in clinic in 3- 4 weeks. Please call with questions or concerns. 06/20/17 12:31 Subjective: She feels a little bit better in terms or dyspnea. No chest pain. Objective: Vital Signs (8 Hrs) Temp Pulse Resp BP Pulse Ox 06/20/17 10:36 37.0 C 85 20 112/64 89 L 06/20/17 09:37 112/64 06/20/17 08:31 85 L 06/20/17 07:22 36.9 C 86 18 112/64 91 L 06/20/17 05:55 75 24 H 92 Intake/Output (24 Hrs) 06/19/17 06/20/17 06/21/17 05:59 05:59 05:59 Intake Total 420 850 Output Total 1 Balance 419 850 Intake: Oral (ml) 420 850 Output: Urine (ml) 1 Toilet 1 Other: Intake Quantity Yes Sufficient Number of Voids Toilet 4 3 Number of Stools Toilet 1 1 Mildly dyspneic but improved compared with yesterday. JVP less than 10. Regular rate and rhythm without murmur or gallop Diffuse inspiratory and expiratory wheezing. No lower extremity edema. Result Diagrams: 06/18/17 04:28 06/20/17 04:43 Cardiac Labs: Cardiac Lab Results (72 Hrs) 06/19/17 04:40 Troponin I 0.018 ICD10 Worksheet Patient Problems: Problems Problem Status Onset Manic bipolar I disorder Active Bronchitis Acute Hypoxia Acute Influenza B Acute Elevated troponin Acute
--- NOTE | 2017-06-20 12:44 | ASMTCMCOM ---
CM Note CM Note Notes: Non-triggering PASRR received from [facility] coordinator, sent to [facility], uploaded in to [employer] and in chart. Pt accepted at [facility]. Likely d/c tomorrow. Date Signed: 06/20/2017 12:43 PM Electronically Signed By:JEN Lin
--- NOTE | 2017-06-20 13:30 | HOSPPROG ---
Hospitalist Progress Note Assessment/Plan: Hospitalist Progress Note Assessment/Plan: The patient presented the emergency room with headaches, dry cough nausea and diffuse myalgias and arthralgias. Patient was sent to the emergency room and noted to have influenza. 56-year-old female with ongoing tobacco abuse, COPD, obesity, newly diagnosed diabetes. # Cardiomyopathy that appears to be ischemic: - not having angina. - Troponin initially was minimally elevated, now normal. - Plavix was added as she has an aspirin allergy. - losartan and Lipitor. -Hold off on beta-blockers given her active wheezing. She will be candidate for beta-helder therapy in the future. # Coronary disease on the basis of EKG, echo, and nuclear stress test. - She needs aggressive risk factor modification including treatment of her diabetes and smoking cessation. - Plavix, statin, losartan as detailed above. # Elevated hemoglobin A1c: - Metformin added #. Acute Hypoxic Resp Failure - Multifactorial- secondary to COPD with influenza. - scheduled nebulizers and prednisone at 40mg once daily. - still on 7liters - lasix x one again today -start mucinex and azithromycin #. COPD - - COPD as chronic smoker. -cessation #. Influenza - -Tamiflu given -Droplet precautions. #. Depression - - history of but does not appear to be treated currently. #. Hx Breast CA - -Hx mastectomy. #. Tobacco Use - -nicotine replacement ordered. #. Insomnia - exacerbated by prednisone. Amitriptyline helpful. #. Bowel/Bladder - bowel regimen if constipation develops. #. DVT Prophylaxis - lovenox. #. Dispo -pending. She is requiring high O2 needs, will follow closely plan for SNF when O2 decreased, to [facility] o2 down to 5L Subjective: Eager to leave the hospital. Still SOB. Objective: Vital Signs Temp Pulse Resp BP Pulse Ox 37.0 C 85 20 112/64 89 L 06/20/17 10:36 06/20/17 10:36 06/20/17 10:36 06/20/17 10:36 06/20/17 10:36 Laboratory Results 06/18/17 04:28 06/20/17 04:43 06/19/17 06/20/17 06/21/17 05:59 05:59 05:59 Intake Total 420 850 Output Total 1 Balance 419 850 PT 14.8 SEC (12.0-15.0) 06/13/17 19:14 INR 1.14 (0.83-1.16) 06/13/17 19:14 - Physical Exam Constitutional: chronically ill appearing, obese, uncomfortable Eyes: PERRL, anicteric sclera Ears, Nose, Mouth, Throat: moist mucous membranes, hearing normal Cardiovascular: edema, No JVD, No tachycardia Respiratory: no respiratory distress, reduced air movement, expiratory wheeze Gastrointestinal: No tenderness, No ascites Skin: warm, normal color Musculoskeletal: normal joint ROM, no joint effusions, generalized weakness Neurologic: AAOx3 Psychiatric: interacting appropriately, not encephalopathic, flat affect ICD10 Worksheet Patient Problems: Problems Problem Status Onset Manic bipolar I disorder Active Bronchitis Acute Hypoxia Acute Influenza B Acute Elevated troponin Acute
[2017-06-20] MEDS: metFORMIN HCL 500 MG TAB PO SCH (14:23)
[2017-06-20] MEDS: ACETAMINOPHEN 325 MG TAB PO PRN (14:48)
[2017-06-20] MEDS: AMITRIPTYLINE HCL 10 MG TAB PO PRN (21:03)
[2017-06-21] MEDS: IPRATROPIUM/ALBUTEROL 3 ML DEYVIAL IH SCH ×2 (05:41→11:01)
[2017-06-21 07:41] VITALS: BP 119/70; TEMP 98; O2SAT 91
[2017-06-21] MEDS: ENOXAPARIN 40 MG/0.4 ML SYR SC SCH (08:02)
[2017-06-21] MEDS: FAMOTIDINE 20 MG TAB PO SCH (08:03)
[2017-06-21] MEDS: ATORVASTATIN CALCIUM 20 MG TAB PO SCH (08:03)
[2017-06-21] MEDS: predniSONE 20 MG TAB PO SCH (08:03)
[2017-06-21] MEDS: metFORMIN HCL 500 MG TAB PO SCH (08:03)
[2017-06-21] MEDS: guaiFENesin 600 MG TAB.ER PO SCH (08:03)
[2017-06-21] MEDS: LOSARTAN POTASSIUM 25 MG TAB PO SCH (08:04)
[2017-06-21] MEDS: AZITHROMYCIN 250 MG TAB PO SCH (08:04)
[2017-06-21] MEDS: CLOPIDOGREL BISULFATE 75 MG TAB PO SCH (08:04)
[2017-06-21] MEDS: MULTIVITAMINS 1 EACH TAB PO SCH (08:04)
[2017-06-21] MEDS: NICOTINE 21 MG/24 HR PATCH TD SCH (08:05)
--- NOTE | 2017-06-21 08:55 | HOSPPROG ---
Hospitalist Progress Note Assessment/Plan: The patient presented the emergency room with headaches, dry cough nausea and diffuse myalgias and arthralgias. Patient was sent to the emergency room and noted to have influenza. # Ischemic Cardiomyopathy - not having angina. - Troponin initially was minimally elevated, now normal. - losartan, Plavix and Lipitor. - Hold off on beta-blockers given her active wheezing. She will be candidate for beta-helder therapy in the future. # Coronary disease on the basis of EKG, echo, and nuclear stress test. - She needs aggressive risk factor modification including treatment of her diabetes and smoking cessation. - Plavix, statin, losartan as detailed above. # Elevated hemoglobin A1c: - Metformin added #. Acute Hypoxic Resp Failure - Multifactorial- secondary to COPD with influenza. - scheduled nebulizers and prednisone at 40mg once daily. - on 3 liters - Mucinex and azithromycin #. COPD - - COPD as chronic smoker. -cessation #. Influenza - -Tamiflu given -Droplet precautions. #. Depression - - history of but does not appear to be treated currently. #. Hx Breast CA - -Hx mastectomy. #. Tobacco Use - -nicotine replacement ordered. #. Insomnia - exacerbated by prednisone. Amitriptyline helpful. #. Bowel/Bladder - bowel regimen if constipation develops. #. DVT Prophylaxis - lovenox. #. pllan : dc to [place] Subjective: Carole is feeling much better today. Objective: Vital Signs Temp Pulse Resp BP Pulse Ox 36.7 C 79 16 119/70 91 L 06/21/17 07:40 06/21/17 07:40 06/21/17 07:40 06/21/17 07:40 06/21/17 07:40 Laboratory Results 06/18/17 04:28 06/20/17 04:43 06/20/17 06/21/17 06/22/17 05:59 05:59 05:59 Intake Total 850 480 Output Total 1999 Balance 850 -1520 PT 14.8 SEC (12.0-15.0) 06/13/17 19:14 INR 1.14 (0.83-1.16) 06/13/17 19:14 - Physical Exam Constitutional: not in pain, obese Eyes: PERRL Ears, Nose, Mouth, Throat: hearing normal Respiratory: no respiratory distress Skin: warm Musculoskeletal: full muscle strength Neurologic: AAOx3 Psychiatric: interacting appropriately ICD10 Worksheet Patient Problems: Problems Problem Status Onset Bronchitis Acute Elevated troponin Acute Hypoxia Acute Influenza B Acute Manic bipolar I disorder Active
--- NOTE | 2017-06-21 10:07 | PDIAF ---
- Diagnosis Diagnosis: ischemic cardiomyopathy, acute hypoxemic respir failure Code Status: Full Code - Medication Management Discharge Medications: Medications to Continue on Transfer Acetaminophen [Tylenol 325mg (*)] 650 mg PO Q4HRS PRN tab 06/21/17 [Last Taken Unknown] Albuterol [Proventil Neb] 3 ml IH Q2HRS PRN deyvial 06/21/17 [Last Taken Unknown] Amitriptyline HCl [Elavil 10 mg (*)] 10 mg PO HS PRN tab 06/21/17 [Last Taken Unknown] Atorvastatin Calcium [Lipitor 20 mg (*)] 20 mg PO DAILY tab 06/21/17 [Last Taken Unknown] Azithromycin [Zithromax] 500 mg PO DAILY #6 tab 06/21/17 [Last Taken Unknown] Clopidogrel Bisulfate [Plavix (*)] 75 mg PO DAILY tab 06/21/17 [Last Taken Unknown] Losartan Potassium [Cozaar 25 mg (*)] 25 mg PO DAILY tab 06/21/17 [Last Taken Unknown] Multivitamins [Multivitamin (*)] 1 each PO DAILY tab 06/21/17 [Last Taken Unknown] Nicotine [Nicoderm Cq 21 mg (*)] 21 mg TD DAILY patch 06/21/17 [Last Taken Unknown] guaiFENesin [Mucinex 600 MG (*)] 1,200 mg PO BID tab.er 06/21/17 [Last Taken Unknown] metFORMIN HCL [Glucophage 500 mg (*)] 500 mg PO DAILY tab 06/21/17 [Last Taken Unknown] predniSONE 40 mg PO DAILY #6 tablet 06/21/17 [Last Taken Unknown] Discharge Medications: Refer to the Discharge Home Medication list for PRN reason. - Orders Services needed: Physical Therapy, Occupational Therapy Isolation Type: Droplet Isolation Oxygen: 3-5 Diet Recommendation: no restrictions on diet Activity/Weight Bearing Restrictions: Carole needs to make an appointment w Dr Blakely for close follow up in the next few weeks Additional: wean prednisone to 40 mg daily x 2 more days, then 20 mg x 2 days, then stop - Follow Up Care Current Providers and Referrals: Delilah Mendoza [Primary Care Provider] - As per Instructions Meron Blakely MD [Medical Doctor] - (3-4 weeks)
[2017-06-21 11:10] VITALS: PULSE 73; RESP 24
--- NOTE | 2017-06-21 12:35 | GDS ---
[f rep st] DISCHARGE SUMMARY DISCHARGE DIAGNOSES: 1. Ischemic cardiomyopathy. 2. Coronary artery disease on the bases of EKG, echo, nuclear stress test. 3. Elevated hemoglobin A1c. 4. Acute hypoxemic respiratory failure. 5. Chronic obstructive pulmonary disease. 6. Influenza. 7. Depression. 8. History of breast cancer. 9. Tobacco use. 10. Insomnia. CONSULTATION: Meron Blakely MD. HISTORY OF PRESENT ILLNESS: Briefly, the patient is a 56-year-old female who was admitted with heada collin, dry cough, and diffuse myalgias and arthralgias. She was noted to have the influenza. During h er stay, she was treated with supportive treatment. She also developed acute hypoxemic respiratory f ailure that worsened quickly. She had an echocardiogram performed which showed ischemic cardiomyopat hy. She was seen and evaluated by the cardiology team who want her with close followup. She has bee n initiated on losartan, Plavix, and Lipitor. She will be a candidate for beta helder therapy when she improves. She will follow up with Cardiology. HOSPITAL COURSE BY PROBLEM: 1. Ischemic cardiomyopathy. She is on losartan, Plavix, and Lipitor. Beta helder down the road wh en she is improved pulmonary obrien. 2. Coronary artery disease. This is on the basis of her EKG, echo and nuclear stress test. She nee ds aggressive risk factor modification. We talked today how critical it is that she quit smoking. A lso, she has been started on metformin for her elevated hemoglobin A1c. 3. Elevated hemoglobin A1c. Metformin added. 4. Acute hypoxemic respiratory failure. She is much better today. She is on 3 L secondary to COPD and influenza. Will continue prednisone and wean this off. 5. COPD. She is a chronic smoker. 6. Influenza. She was treated with Tamiflu and on droplet precautions. 7. Depression. She has a history of this but does not appear to be depressed during my interview. 8. History of breast cancer. She is status post mastectomy. 9. Tobacco use, on nicotine patch. 10. Insomnia. She is on amitriptyline. That is new. DISCHARGE CONDITION: Stable. Blood pressure is 119/70, heart rate 79, respiratory rate is 16, O2 sa t on 4 L is 91%, temperature is 36.7 Celsius. MEDICATIONS AT DISCHARGE: Please see the EMR. DISCHARGE INSTRUCTIONS: 1. Follow up with Dr. Meron Blakely. 2. Emphasized the criticalness of stopping smoking. 3. Call for a followup with her primary care provider. Greater than 30 minutes discharging and coordinating the patient's care. /[id number]/MODL
--- NOTE | 2017-06-21 14:46 | ASMTLACE ---
LACE Length of stay for Answers: 7-13 days current admission Acuity / Level of Answers: Yes Care: Did the patient have an inpatient admission? Comorbidities - select Answers: Chronic pulmonary disease all that apply # of Emergency department Answers: 1-2 visits in the last 6 months Social determinants Answers: Homelessness (street, skilled nursing) Mental health diagnosis (anxiety, depression, pers onality disorders, etc.) Lack of community resources and/or lack of social support (no pcp, lives alone, transportation, yoana d) Score: 21 Date Signed: 06/21/2017 02:45 PM Electronically Signed By:JEN Viera
--- NOTE | 2017-06-22 17:38 | ASDISCHSUM ---
Discharge Information Plan Status:SNF Medically Cleared to Leave:06/20/2017 Discharge Date:06/21/2017 01:31 PM CM D/C Disposition:Long-Term Facility ADT D/C Disposition:Long-Term Facility Projected Discharge Date:06/21/2017 11:00 AM Transportation at D/C:Wheelchair Van Discharge Delay Reason: Follow-Up Date:06/21/2017 11:00 AM Discharge Slot: Final Diagnosis:Cardiomyopathy, CAD, Hypoxic Resp failure, COPD, Flu Placement Information Referral Type:*[facility]ci/SNF Referral ID:[id number] Provider Name:Rick Rivers/[facility] Address 1:[address] Phone Number: Address 2: Fax Number: [facility]:[place] Selection Factors: State:[place] Patient Contact Information Contact Name:ABY Relationship:Daughter Address: Work Phone: [facility]:[place] Alternate Phone: [facility]/Zip Code:[place] Email: Financial Information Financial Class: Primary Plan Desc:MEDICARE INPATIENT Primary Plan Number:[id number] Secondary Plan Desc:MEDICA[place] Secondary Plan Number:[id number] Assessment Information [facility] CM Progress Note CM Note CM Note Notes: Pt has been admitted with the flu and hypoxia. On CPAP and 5L O2. Hx COPD. She is homeless and stays at the residential. Has been seen at [facility] but does not go regularly. CM will follow for any d /c needs. Date Signed: 06/14/2017 02:58 PM Electronically Signed By:JEN Viera [facility] CM Progress Note CM Note CM Note Notes: Requested PT/OT evals from RN. Pt on 3L O2. OT recommending SN, PT still pending. Date Signed: 06/17/2017 05:01 PM Electronically Signed By:JEN Viera [facility] CM Progress Note CM Note CM Note Notes: PT rec SNF, pt agreeable ideally wants SNF in [place]. Referrals sent to Leta Walker and Tita Ventura in [facility]. Non-triggering PASRR completed. Date Signed: 06/18/2017 04:18 PM Electronically Signed By:JEN Lin [facility] CM Progress Note CM Note CM Note Notes: Pt PASRR triggers, sent to Dianna Ocampo today. [facility] referral pending, this is pt first choice she states because she wants to smoke. CM to follow. Date Signed: 06/19/2017 04:10 PM Electronically Signed By:JEN Lin [facility] CM Progress Note CM Note CM Note Notes: PASRR received from Ob coordinator and [facility] accepts pt. D/c plan is BM when medically stable. Date Signed: 06/20/2017 09:22 AM Electronically Signed By:JEN Lin [facility] CM Progress Note CM Note CM Note Notes: Non-triggering PASRR received from OBRA coordinator, sent to , uploaded in to [employer] and in chart. Pt accepted at [facility]. Likely d/c tomorrow. Date Signed: 06/20/2017 12:43 PM Electronically Signed By:JEN Lin Case Management Discharge Plan Note Case Management Discharge Discharge Order Complete? Answers: Yes Patient to Obtain Answers: Other Notes: SNF Medications Transportation Arranged Answers: Other Notes: w/c van Transport will Pick (Date 06/21/2017 01:30 PM & Time) Faxed Final Orders Answers: Yes Discharge Comments Notes: Pt discharged to [facility]. Transport arranged by . D/C orders faxed as they could not access [facility]. Attempted faxing 5 or 6 times before there was a workable number. IM signed, copy to pt and in chart. Date Signed: 06/21/2017 02:32 PM Electronically Signed By:JEN Viera LACE LACE Length of stay for Answers: 7-13 days current admission Acuity / Level of Answers: Yes Care: Did the patient have an inpatient admission? Comorbidities - select Answers: Chronic pulmonary disease all that apply # of Emergency department Answers: 1-2 visits in the last 6 months Social determinants Answers: Homelessness (street, residential) Mental health diagnosis (anxiety, depression, pers onality disorders, etc.) Lack of community resources and/or lack of social support (no pcp, lives alone, transportation, yoana d) Score: 21 Date Signed: 06/21/2017 02:45 PM Electronically Signed By:JEN Viera Intervention Information
== END 2017-06-21 13:31 | DRG 193 ==
LOC: EDUNIT# → F2N 22:19 → F3N 06-16 23:40 → F3E 06-20 18:35
PROVIDERS: ADMIT Internal Medicine; ATTEND Internal Medicine
DX: J10.1 Influenza due to other identified influenza virus with other respiratory manifestations (principal); J96.01 Acute respiratory failure with hypoxia; I25.5 Ischemic cardiomyopathy; I25.10 Atherosclerotic heart disease of native coronary artery without angina pectoris; J44.9 Chronic obstructive pulmonary disease, unspecified; F32.9 Major depressive disorder, single episode, unspecified; G47.00 Insomnia, unspecified; E87.5 Hyperkalemia; E66.9 Obesity, unspecified; Z72.0 Tobacco use; Z85.3 Personal history of malignant neoplasm of breast; Z59.0 Homelessness; Z23 Encounter for immunization; Z90.10 Acquired absence of unspecified breast and nipple
CPT/HCPCS: 97116-GP; 97161-GP; 97165-GO; 97530-GO; 97535-GO; A9500; G0008; G0009; G8978-GP-CJ; G8979-GP-CI; G8987-GO-CJ; G8988-GO-CI; G8989-GO-CI; J0456; J1650; J1940; J2060; J2785; J7512; J7613

== ENCOUNTER 2018-02-10 23:31 | Emergency (ER) | payer OTHER, MEDICAID ==
--- NOTE | 2018-02-10 23:38 | EDPHY ---
H & P Time Seen by Provider: 02/10/18 23:37 HPI/ROS: HPI CHIEF COMPLAINT: Mechanical trip and fall, left ankle pain. HISTORY OF PRESENT ILLNESS: 57-year-old female, homeless, history of bipolar disorder, presents emergency room by EMS for left ankle pain. Patient states she tripped and fell landing on her left ankle. EMS reports she is ambulatory no difficulty walking. She states she was recently kicked out of somebody's house and is currently homeless tonight. Denies any other injuries, denies any other complaints. She denies feeling suicidal homicidal denies feeling depressed. Past Medical History: Bipolar disorder Past Surgical History: No recent surgery Social History: Smokes marijuana tonight. 1 shot of alcohol. Otherwise no other illicit drugs. Family History: Noncontributory ROS REVIEW OF SYSTEMS: 10 Systems were reviewed and negative with the exception of the elements mentioned in the history of present illness. Exam Constitutional triage nursing summary reviewed, vital signs reviewed, awake/ alert. Eyes normal conjunctivae and sclera, EOMI, PERRLA. HENT normal inspection, atraumatic, moist mucus membranes, no epistaxis, neck supple/ no meningismus, no raccoon eyes. Respiratory clear to auscultation bilaterally, normal breath sounds, no respiratory distress, no wheezing. Cardiovascular rate normal, regular rhythm, no murmur, no edema, distal pulses normal. Gastrointestinal soft, non-tender, no rebound, no guarding, normal bowel sounds, no distension, no pulsatile mass. Genitourinary no CVA tenderness. Musculoskeletal no midline vertebral tenderness, full range of motion, no calf swelling, no tenderness of extremities, no meningismus, good pulses, neurovascularly intact. Skin pink, warm, & dry, no rash, skin atraumatic. Neurologic awake, alert and oriented x 3, AAOx3, moves all 4 extremities equally, motor intact, sensory intact, CN II-XII intact, normal cerebellar, normal vision, normal speech. Psychiatric normal mood/affect. Heme/Lymph/Immune no lymphadenopathy. Differential Diagnosis: Includes but is not limited to in a particular order trip and fall mechanical, left ankle contusion, left ankle sprain, left ankle fracture Medical Decision Making: Plan for this patient x-ray left ankle. Ice pack. Re-evaluation: X-ray of the ankle reviewed. Negative for acute fracture malalignment. Patient placed in David wrap for comfort. Recommend anti-inflammatory pain medicine ice, rest. Source: Patient, EMS - Medical/Surgical History Hx Asthma: No Hx Chronic Respiratory Disease: No Hx Diabetes: No Hx Cardiac Disease: No Hx Renal Disease: No Hx Cirrhosis: No Hx Alcoholism: No Hx HIV/AIDS: No Hx Splenectomy or Spleen Trauma: No Other PMH: BIPOLAR, FIBROMYALGIA, SCIATICA, LOW BACK FX,HYSTERECTOMY,R HAND FX. pneumonia - Social History Smoking Status: Current every day smoker Constitutional: Initial Vital Signs Temperature (C) 36.9 C 02/10/18 23:37 Heart Rate 86 02/10/18 23:37 Respiratory Rate 20 02/10/18 23:37 Blood Pressure 108/66 02/10/18 23:37 O2 Sat (%) 91 L 02/10/18 23:37 O2 Delivery Mode Room Air Allergies/Adverse Reactions: aspirin [Aspirin] Allergy (Mild, Verified 02/10/18 23:36) Vomiting haloperidol [From Haldol] Allergy (Mild, Verified 02/10/18 23:36) INSOMNIA haloperidol lactate [From Haldol] Allergy (Mild, Verified 02/10/18 23:36) INSOMNIA oxycodone Allergy (Verified 02/10/18 23:36) Home Medications: Medication Instructions Recorded Acetaminophen [Tylenol 325mg (*)] 650 mg PO Q4HRS PRN tab 06/21/17 Albuterol [Proventil Neb] 3 ml IH Q2HRS PRN deyvial 06/21/17 Amitriptyline HCl [Elavil 10 mg 10 mg PO HS PRN tab 06/21/17 (*)] Atorvastatin Calcium [Lipitor 20 20 mg PO DAILY tab 06/21/17 mg (*)] Azithromycin [Zithromax] 500 mg PO DAILY #6 tab 06/21/17 Clopidogrel Bisulfate [Plavix (*)] 75 mg PO DAILY tab 06/21/17 Losartan Potassium [Cozaar 25 mg 25 mg PO DAILY tab 06/21/17 (*)] Multivitamins [Multivitamin (*)] 1 each PO DAILY tab 06/21/17 Nicotine [Nicoderm Cq 21 mg (*)] 21 mg TD DAILY patch 06/21/17 guaiFENesin [Mucinex 600 MG (*)] 1,200 mg PO BID tab.er 01/27/18 metFORMIN HCL [Glucophage 500 mg 500 mg PO DAILY tab 06/21/17 (*)] predniSONE 40 mg PO DAILY #6 tablet 06/21/17 Medical Decision Making - Diagnostics Imaging Results: Imaging Impressions Ankle X-Ray 02/10/18 23:36 Impression: Negative for fracture. Departure - Departure Disposition: Home, Routine, Self-Care Clinical Impression: Ankle sprain Qualifiers: Encounter type: initial encounter Involved ligament of ankle: unspecified ligament Laterality: right Qualified Code(s): S93.401A - Sprain of unspecified ligament of right ankle, initial encounter Condition: Good Instructions: Ankle Sprain (ED) Additional Instructions: 1. Recommend you ice her ankle. 2. Recommend rest. 3. Return if worse. Referrals: Patient,NotPresent [Primary Care Provider] - As per Instructions
[2018-02-10 23:40] VITALS: BP 108/66
== END 2018-02-11 00:29 | disposition home or self-care (01) ==
LOC: EDUNIT#
DX: S93.402A Sprain of unspecified ligament of left ankle, initial encounter (principal); W18.40XA Slipping, tripping and stumbling without falling, unspecified, initial encounter; Z59.0 Homelessness; F31.9 Bipolar disorder, unspecified; F17.210 Nicotine dependence, cigarettes, uncomplicated

== ENCOUNTER 2018-02-11 06:11 | Emergency (ER) | payer OTHER, MEDICAID ==
--- NOTE | 2018-02-11 06:29 | EDPHY ---
H & P Stated Complaint: withdrawal of medication lyrica Time Seen by Provider: 02/11/18 06:28 HPI/ROS: HPI CHIEF COMPLAINT: Feeling anxious. HISTORY OF PRESENT ILLNESS: 57-year-old female who I saw last night for ankle pain. Had unremarkable x-ray. She was discharged. Apparently she slept outside of the hospital and inside the hospital emergency room waiting room. Patient now presents back to the emergency room stating that she feels very anxious and requesting anxiety medication. Patient states she feels anxious. Recently lost her housing. Denies suicidal or homicidal ideation, denies wanting to hurt herself. Past Medical History: Bipolar disorder. Past Surgical History: No recent surgery Social History: Smokes tobacco. Denies illicit drugs or alcohol. Homeless. Family History: Noncontributory. ROS REVIEW OF SYSTEMS: 10 Systems were reviewed and negative with the exception of the elements mentioned in the history of present illness. Exam Constitutional nontoxic, no acute distress triage nursing summary reviewed, vital signs reviewed, awake/alert. Eyes normal conjunctivae and sclera, EOMI, PERRLA. HENT normal inspection, atraumatic, moist mucus membranes, no epistaxis, neck supple/ no meningismus, no raccoon eyes. Respiratory clear to auscultation bilaterally, normal breath sounds, no respiratory distress, no wheezing. Cardiovascular rate normal, regular rhythm, no murmur, no edema, distal pulses normal. Gastrointestinal soft, non-tender, no rebound, no guarding, normal bowel sounds, no distension, no pulsatile mass. Genitourinary no CVA tenderness. Musculoskeletal no midline vertebral tenderness, full range of motion, no calf swelling, no tenderness of extremities, no meningismus, good pulses, neurovascularly intact. Skin pink, warm, & dry, no rash, skin atraumatic. Neurologic awake, alert and oriented x 3, AAOx3, moves all 4 extremities equally, motor intact, sensory intact, CN II-XII intact, normal cerebellar, normal vision, normal speech. Psychiatric slightly anxious Heme/Lymph/Immune no lymphadenopathy. Differential Diagnosis: Includes but is not limited to in a particular order acute anxiety, panic attack Medical Decision Making: Plan for this patient 1 mg p.o. Ativan for anxiety. Will also give outpatient mental health resources for her. She is comfortable this plan. Source: Patient - Personal History Current Tetanus/Diphtheria Vaccine: Yes Current Tetanus Diphtheria and Acellular Pertussis (TDAP): Yes - Medical/Surgical History Hx Asthma: No Hx Chronic Respiratory Disease: No Hx Diabetes: No Hx Cardiac Disease: No Hx Renal Disease: No Hx Cirrhosis: No Hx Alcoholism: No Hx HIV/AIDS: No Hx Splenectomy or Spleen Trauma: No Other PMH: BIPOLAR, FIBROMYALGIA, SCIATICA, LOW BACK FX,HYSTERECTOMY,R HAND FX. pneumonia - Social History Smoking Status: Current every day smoker Constitutional: Initial Vital Signs Temperature (C) 37.0 C 02/11/18 06:16 Heart Rate 93 02/11/18 06:16 Respiratory Rate 18 02/11/18 06:16 Blood Pressure 167/94 H 02/11/18 06:16 O2 Sat (%) 92 02/11/18 06:16 O2 Delivery Mode Room Air Allergies/Adverse Reactions: aspirin [Aspirin] Allergy (Mild, Verified 02/11/18 06:19) Vomiting haloperidol [From Haldol] Allergy (Mild, Verified 02/11/18 06:19) INSOMNIA haloperidol lactate [From Haldol] Allergy (Mild, Verified 02/11/18 06:19) INSOMNIA oxycodone Allergy (Verified 02/11/18 06:19) Home Medications: Medication Instructions Recorded Acetaminophen [Tylenol 325mg (*)] 650 mg PO Q4HRS PRN tab 06/21/17 Albuterol [Proventil Neb] 3 ml IH Q2HRS PRN deyvial 06/21/17 Amitriptyline HCl [Elavil 10 mg 10 mg PO HS PRN tab 06/21/17 (*)] Atorvastatin Calcium [Lipitor 20 20 mg PO DAILY tab 06/21/17 mg (*)] Azithromycin [Zithromax] 500 mg PO DAILY #6 tab 06/21/17 Clopidogrel Bisulfate [Plavix (*)] 75 mg PO DAILY tab 06/21/17 Losartan Potassium [Cozaar 25 mg 25 mg PO DAILY tab 06/21/17 (*)] Multivitamins [Multivitamin (*)] 1 each PO DAILY tab 06/21/17 Nicotine [Nicoderm Cq 21 mg (*)] 21 mg TD DAILY patch 06/21/17 guaiFENesin [Mucinex 600 MG (*)] 1,200 mg PO BID tab.er 06/21/17 metFORMIN HCL [Glucophage 500 mg 500 mg PO DAILY tab 06/21/17 (*)] predniSONE 40 mg PO DAILY #6 tablet 06/21/17 Departure - Departure Disposition: Home, Routine, Self-Care Clinical Impression: Anxiety Condition: Good Instructions: Anxiety (ED) Referrals: NONE *PRIMARY CARE P,. [Primary Care Provider] - As per Instructions [facility]Felicia [Clinic] - As per Instructions
[2018-02-11] MEDS ORDERED: LORazepam 1 MG TAB PO ONE (06:34)
--- NOTE | 2018-02-11 07:10 | ASMTLCPROG ---
Notes Note: Notes: ED provider, Berry Gilbert MD request [facility] referral resource consultation with pt for anxiety. Pt provided with flyer information for [facility]. Date Signed: 02/11/2018 07:09 AM Electronically Signed By:Otoniel Parr
[2018-02-11 07:49] VITALS: BP 144/81
== END 2018-02-11 07:49 | disposition home or self-care (01) ==
DX: F41.9 Anxiety disorder, unspecified (principal)